=== PATIENT | male | born 1980 | race Caucasian/White ===

== ENCOUNTER 2020-08-19 02:47 | Emergency (ER) | payer OTHER ==
[~2020-08-19] VITALS: Ht 182.9 cm; Wt 107.5 kg
--- NOTE | ~2020-08-19 | EMS ---
[address] [address] EMS Patient Care Report Name: GABRIELLE KING Room #: [facility] COLT Mckay#: [id number] Admission: 08/19/20 Attend Phys: Discharge: Date of : 82 Report #: [id number] THIS REPORT FOR: //name// Report Transmitted: 08/19/2020 04:32 EMS Care Summary [place], [place]/[facility] Incident [id number] @ 08/19/2020 02:21 Incident Location [address] [place], [place] [id number] Patient GABRIELLE KING Male, 40 Years 1980 Patient Address [address] [address] Patient History Diabetes, Patient Allergies No known allergies, Patient Medications None Reported, Chief Complaint CHEST DISCOMFORT Disposition Transported No Lights/[place] Dispatch Reason Chest Pain (Non-Traumatic) Transported To [facility] Narrative M36 ARRIVES TO FIND 40 Y/O M PT HAVING BEEN AWOKEN BY A FEELING OF DISCOMFORT IN HIS CHEST WHICH HE DESCRIBES "PRESSURE AND NUMBNESS" [address] [address] EMS Patient Care Report Name: GABRIELLE KING Room #: [facility]T Mckay#: [id number] Admission: 08/19/20 Attend Phys: Discharge: Date of : 82 Report #: [id number] ASSESSMENTS AND TREATMENTS NOTED. PT AMBULATORY AND WALKS TO AMBULANCE. PT SECURED TO COT. PT TRANSPORTED. M36 ARRIVES AT DESTINATION. PT MOVED TO ROOM IN ED. PT MOVES TO BED IN ROOM VIA [id number]. PT CARE TRANSFERRED. M36 RETURNS TO SERVICE. Initial Vitals @02:39P: 108,BP: 146/82,CO: 6,SpO2: 99, @02:42P: 104,R: 18,BP: 154/77,Pain: 0/10,GCS: 15,CO: 7,SpO2: 99,Revised Trauma: 12, @02:36P: 101,R: 18,BP: 189/93,Pain: 0/10,GCS: 15,Glucose: 258,SpO2: 97,Revised Trauma: 12, Assessments @02:33MENTAL:Person Oriented,Time Oriented,Place Oriented,Event Oriented,SKIN:HEENT:LUNG SOUNDS:ABDOMEN:PELVIS//GI:EXTREMITIES:PULSE:NEURO:@02:43MENTAL:No Abnormalities,SKIN:No Abnormalities,HEENT:Head/Face: No Abnormalities,Eyes: No Abnormalities,Neck/Airway: No Abnormalities,LUNG SOUNDS:General: No Abnormalities,Left Upper: No Abnormalities,Right Upper: No Abnormalities,Left Lower: No Abnormalities,Right Lower: No Abnormalities,ABDOMEN:General: No Abnormalities,Left Upper: No Abnormalities,Right Upper: No Abnormalities,Left Lower: No Abnormalities,Right Lower: No Abnormalities,PELVIS//GI:No Abnormalities,EXTREMITIES:Left Arm: No Abnormalities,Right Arm: No Abnormalities,Left Leg: No Abnormalities,Right Leg: No Abnormalities,PULSE:NEURO:No Abnormalities, Impression Chest Pain / Discomfort Procedures @02:3312-Lead ECGResponse: UnchangedSucceeded@02:35Saline Lock 0cc (18 ga) Site: Antecubital-RightResponse: UnchangedSucceeded@02:33ALS AssessmentResponse: UnchangedSucceeded@02:333-Lead ECGResponse: Unchanged@02:40Aspirin - 162 Milligrams (mg) - OralResponse: Unchanged Timeline 02:19,Call Received 02:19,Dispatch Notified 02:21,Dispatched 02:23,En Route 02:32,On Scene 02:33,At Patient 02:33,ALS Assessment,Response: UnchangedSucceeded, 02:33,3-Lead ECG,Response: Unchanged 02:33,12-Lead ECG,Response: UnchangedSucceeded, 02:35,Saline Lock 0cc 18 ga Site: Antecubital-Right,Response: [facility] [address] [place] [address] EMS Patient Care Report Name: GABRIELLE KING Room #: [facility] COLT Mckay#: [id number] Admission: 08/19/20 Attend Phys: Discharge: Date of : 82 Report #: [id number] UnchangedSucceeded, 02:36,BP: 189/93 M,PULSE: 101,RR: 18 R,SPO2: 97 Ox,ETCO2: ,B,PAIN: 0,GCS: 15, 02:39,BP: 146/82 M,PULSE: 108,RR: R,SPO2: 99 Ox,ETCO2: ,BG: ,PAIN: ,GCS: , 02:40,Aspirin - 162 Milligrams (mg) - Oral,Response: Unchanged 02:41,Depart Scene 02:42,BP: 154/77 M,PULSE: 104,RR: 18 R,SPO2: 99 Ox,ETCO2: ,BG: ,PAIN: 0,GCS: 15, 02:44,At Destination 02:59,Call Closed Disclaimer [email or web address] Copyright 2020 [employer] This EMS Care Summary contains data elements from the applicable legal record (which may be displayed differently). It is designed to provide pertinent information for the following purposes: continuity of care, clinical quality, and state data reporting. The complete legal record is available to ED staff and administrators of the receiving hospital in [email or web address]'s Patient Tracker. All data is provided "as is."
[2020-08-19] MEDS ORDERED: METFORMIN HCL500 M3 PO (03:02)
[2020-08-19] MEDS ORDERED: OMEPRAZOLE40 MG PO (03:02)
[2020-08-19 03:29] LABS: BASOPHILS 0.6 % (0.0-2.0); HEMATOCRIT 46.5 % (42.0-52.0); HEMOGLOBIN 15.7 gm/dL (14.0-18.0); LYMPHOCYTES 37.2 % (24.0-44.0); MCH 29.1 pg (26.0-34.0); MCHC 33.9 g/dL (28.0-37.0); PLATELET COUNT 242 thou/uL (150-400); POLYS 52.2 % (36.0-66.0); RDW 13.6 % (10.5-14.5); WBC 7.6 thou/uL (4.0-11.0)
[2020-08-19 03:32] LABS: ANION GAP 11 mmol/L (7-16); BUN 15 mg/dL (7-18); CALCIUM 8.4 mg/dL (8.5-10.1); CHLORIDE 103 mmol/L (98-107); CO2 28 mmol/L (21-32); CREATININE 1.1 mg/dL (0.7-1.3); GLUCOSE 265 mg/dL (74-106); POTASSIUM 3.6 mmol/L (3.5-5.1); SODIUM 142 mmol/L (136-145)
[2020-08-19 03:41] LABS: ALBUMIN 3.5 g/dL (3.4-5.0); LIPASE 130 U/L (73-393); SGPT 30 U/L (16-63); TOTAL BILIRUBIN 0.4 mg/dL (0.2-1.0); TOTAL PROTEIN 7.1 g/dL (6.4-8.2); TROPONIN-I <0.06 ng/mL (<0.06)
[2020-08-19 04:05] LABS: SGOT 17 U/L (15-37)
[2020-08-19 06:43] VITALS: BP 118/74
--- NOTE | 2020-08-19 07:10 | EKG ---
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
== END 2020-08-19 07:01 | disposition still patient (30) ==
LOC: ER 02:47
PROVIDERS: Emergency Medicine
DX: R07.89 Other chest pain (principal); E11.9 Type 2 diabetes mellitus without complications; R20.0 Anesthesia of skin; Z79.84 Long term (current) use of oral hypoglycemic drugs